=== PATIENT | male | born 2000 | race Caucasian/White ===

== ENCOUNTER 2019-06-24 09:39 | Emergency (ER) | payer MEDICAID ==
[2019-06-24] MEDS: IBUPROFEN 600 MG TAB PO (11:19)
[2019-06-24] MEDS: HYDROCODONE/APAP (5/325) TAB PO (11:20)
== END 2019-06-24 12:29 | disposition home or self-care (01) ==
LOC: FTE 09:39
DX: S89.92XA Unspecified injury of left lower leg, initial encounter (principal); W10.9XXA Fall (on) (from) unspecified stairs and steps, initial encounter; Y92.9 Unspecified place or not applicable
CPT/HCPCS: 73564; 73564-50; 73630; 99284-25